=== PATIENT | female | born 1995 | race Caucasian/White ===

== ENCOUNTER 2020-01-23 07:56 | Day surgery (SDC) | payer OTHER, SELFPAY ==
[~2020-01-23] VITALS: Ht 167.6 cm; Wt 98.0 kg
[2020-01-23] MEDS ORDERED: fentaNYL citrate 0.05 MG/ML VIAL ONE (09:37)
[2020-01-23] MEDS ORDERED: LIDOCAINE 2% 100 MG/5 ML UJET TP ONE (09:37)
[2020-01-23] MEDS ORDERED: diphenhydrAMINE 50 MG/ML VIAL ONE (09:37)
[2020-01-23] MEDS ORDERED: MIDAZOLAM 5 MG/5 ML VIAL ONE (09:37)
[2020-01-23] MEDS ORDERED: fentaNYL citrate 0.05 MG/ML VIAL IVP ONE (10:05)
[2020-01-23] MEDS ORDERED: diphenhydrAMINE 50 MG/ML VIAL IVP ONE (10:05)
[2020-01-23] MEDS ORDERED: MIDAZOLAM 2 MG/2 ML VIAL IVP ONE (10:05)
== END 2020-01-23 10:30 | disposition home or self-care (01) ==
LOC: MDS 07:56 → MFCC 07:56 → MDS 10:30
PROVIDERS: ATTEND Internal Medicine Gastroenterology
DX: K62.5 Hemorrhage of anus and rectum (principal); K52.9 Noninfective gastroenteritis and colitis, unspecified; M79.7 Fibromyalgia; K64.4 Residual hemorrhoidal skin tags; R63.4 Abnormal weight loss; Z90.49 Acquired absence of other specified parts of digestive tract; Z98.1 Arthrodesis status; Z90.89 Acquired absence of other organs; Z88.5 Allergy status to narcotic agent; Z20.828 Contact with and (suspected) exposure to other viral communicable diseases
CPT/HCPCS: 45378; 81025; J1200; J2250; J3010; U0003

== ENCOUNTER 2020-02-13 08:39 | Day surgery (SDC) | payer OTHER, SELFPAY ==
[~2020-02-13] VITALS: Ht 167.6 cm; Wt 96.6 kg
[2020-02-13 09:21] LABS: BASOPHILS # (AUTO) 0.1 K/uL (0.00-0.22); BASOPHILS % (AUTO) 0.8 % (0.0-2.0); EOSINOPHILS % (AUTO) 0.4 % (0.0-4.0); HEMATOCRIT 39.6 % (36-48); HEMOGLOBIN 12.8 g/dL (12.0-16.0); LYMPHOCYTES # (AUTO) 3.2 K/uL (2.5-16.5); LYMPHOCYTES % (AUTO) 36.2 % (20.5-51.1); MEAN CORPUSCULAR HEMOGLOBIN 28 pg (27-31); MEAN CORPUSCULAR HGB CONC 32 g/dL (33-37); MONOCYTES # (AUTO) 0.6 K/uL (0.8-1.0); MONOCYTES % (AUTO) 7.3 % (1.7-9.3); NEUTROPHILS # (AUTO) 4.9 K/uL (1.8-7.7); NEUTROPHILS % (AUTO) 55.3 % (42.2-75.2); PLATELET COUNT (AUTO) 273 K/uL (140-450); RED BLOOD CELL COUNT(AUTO) 4.56 MIL/uL (4.20-5.40); RED CELL DISTRIBUTION WIDTH 15.1 % (11.6-13.7); WHITE BLOOD COUNT (AUTO) 8.9 K/uL (4.8-10.8)
[2020-02-13] MEDS ORDERED: LACTATED RINGERS 1,000 ML IV SCH (09:21)
[2020-02-13] MEDS ORDERED: ONDANSETRON 4 MG/2 ML VIAL IVP PRN (09:25)
[2020-02-13] MEDS ORDERED: diphenhydrAMINE 50 MG/ML VIAL IVP PRN (09:25)
[2020-02-13] MEDS ORDERED: HYDROmorphone 1 MG/ML AMP IVP PRN (09:25)
[2020-02-13] MEDS ORDERED: MEPERIDINE 25 MG/ML SYR IVP PRN (09:25)
[2020-02-13 09:33] LABS: ALBUMIN 3.5 g/dL (3.4-5.0); CARBON DIOXIDE 25.5 mmol/L (21-32); CREATININE 1.1 mg/dL (0.6-1.3); POTASSIUM 3.5 mmol/L (3.5-5.1); TOTAL BILIRUBIN 0.9 mg/dL (0.0-1.0)
[2020-02-13] MEDS ORDERED: KETAMINE 500 MG/5 ML VIAL ONE (09:50)
[2020-02-13] MEDS ORDERED: MIDAZOLAM 2 MG/2 ML VIAL ONE (09:53)
== END 2020-02-13 12:50 | disposition home or self-care (01) ==
LOC: MDS 08:39 → MMU 08:40 → MDS 12:50
PROVIDERS: ATTEND Internal Medicine Gastroenterology
DX: K62.5 Hemorrhage of anus and rectum (principal); K52.9 Noninfective gastroenteritis and colitis, unspecified; R15.2 Fecal urgency; M79.7 Fibromyalgia; J45.909 Unspecified asthma, uncomplicated; E66.9 Obesity, unspecified; Z90.49 Acquired absence of other specified parts of digestive tract; Z90.89 Acquired absence of other organs; Z98.1 Arthrodesis status; Z88.5 Allergy status to narcotic agent; Z20.828 Contact with and (suspected) exposure to other viral communicable diseases
CPT/HCPCS: 36415; 45380; 71045; 80053; 81025; 85025; 88305; J2250; J7120; Q0092; U0003